=== PATIENT | female | born 1960 | race African-American/Black ===

== ENCOUNTER 2018-04-18 01:01 | Emergency (ER) | payer BC, OTHER ==
[~2018-04-18] VITALS: Ht 172.7 cm; Wt 63.5 kg
--- NOTE | 2018-04-18 01:29 | NUR ---
PT BBSELF FROM HOME C/C DIZZINESS SINCE TUESDAY, WORSE TODAY. PT DENIES N/V AT TIME OF ARRIVAL. PT IS AAOX4. PT DENIES NECK PAIN/STIFFNESS. NO S/S OF ACUTE DISTRESS NOTED. RESP EVEN AND UNLABORED. PT PLACED ON DESK TOP PUBLISHER AND POX. PT SAFETY AND COMFORT MEASURES IN PLACE. AWAITING MD FOR EVAL.
[2018-04-18] MEDS ORDERED: PROCHLORPERAZINE EDISYLATE 10 MG/2 ML VIAL ONE (01:30)
[2018-04-18] MEDS ORDERED: diphenhydrAMINE HCL 50 MG/ML VIAL ONE (01:30)
--- NOTE | 2018-04-18 01:34 | NUR ---
PT TO CT
[2018-04-18] MEDS: PROCHLORPERAZINE EDISYLATE 10 MG/2 ML VIAL IV ONE (01:50)
[2018-04-18] MEDS: diphenhydrAMINE HCL 50 MG/ML VIAL IV ONE (01:50)
[2018-04-18 02:05] LABS: BASOPHILS % (AUTO) 0.5 % (0.0-2.0); EOSINOPHILS % (AUTO) 1.2 % (0.0-6.0); HEMATOCRIT 37 % (33-45); LYMPHOCYTES # (AUTO) 2.3 /CMM (0.8-4.8); LYMPHOCYTES % (AUTO) 37.7 % (20.0-44.0); MEAN CORPUSCULAR HEMOGLOBIN 27 PG (26.0-33.0); MEAN CORPUSCULAR HGB CONC 33 g/dl (31.0-36.0); MEAN CORPUSCULAR VOLUME 82 fL (82-100); MONOCYTES # (AUTO) 0.3 /CMM (0.1-1.30); MONOCYTES % (AUTO) 5.7 % (2.0-12.0); NEUTROPHILS # (AUTO) 3.3 /CMM (1.8-8.9); NEUTROPHILS % (AUTO) 54.9 % (43.0-81.0); PLATELET COUNT (AUTO) 242 /CMM (150-450); RDW COEFFICIENT OF VARIATION 14.5 (11.5-15.0); RED BLOOD CELL COUNT(AUTO) 4.51 MIL/uL (4.0-5.2)
[2018-04-18 02:18] LABS: CALCIUM, SERUM 8.7 mg/dL (8.5-10.1); CARBON DIOXIDE 24 mmol/L (21-32); CHLORIDE 107 mmol/L (98-107); CREATININE 0.7 mg/dL (0.6-1.3); INR 1.12 (0.87-1.13); POTASSIUM 3.6 mmol/L (3.5-5.1); SODIUM SERUM 140 mmol/L (136-145); UREA NITROGEN, BLOOD 14 mg/dL (7-18)
[2018-04-18 02:24] LABS: ALANINE AMINOTRANSFERASE 31 U/L (12-78); ALBUMIN 3.9 g/dL (3.4-5.0); ALKALINE PHOSPHATASE 63 U/L (46-116); ASPARTATE AMINOTRANSFERASE 22 U/L (15-37); BILIRUBIN,DIRECT 0.1 mg/dL (0.0-0.2); BILIRUBIN,TOTAL 0.4 mg/dL (0.2-1.0); TOTAL PROTEIN, SERUM 7.7 g/dL (6.4-8.2)
[2018-04-18 02:26] LABS: CHOLESTEROL 221 mg/dL (<200); GLUCOSE 113 mg/dL (74-106); HDL CHOLESTEROL 50 mg/dL (40-60); LDL 153 mg/dL (0-99); TRIGLYCERIDES 86 mg/dL (30-150)
[2018-04-18 02:51] LABS: TROPONIN I < 0.017 ng/mL (0.00-0.056)
--- NOTE | 2018-04-18 03:59 | NUR ---
Patient discharged to home in stable condition. Written and verbal after care instructions given. Patient verbalizes understanding of instruction.IV removed. Catheter intact and site benign. Pressure and 4x4 applied to site. No bleeding noted. NO S/S OF DISTRESS NOTED UPON DISCHARGE. PT AMBULATED WITH STEADY GAIT NOTED.
[2018-04-18 04:04] VITALS: BP 159/98
== END 2018-04-18 04:05 | disposition home or self-care (01) ==
LOC: ER 01:02
DX: R42 Dizziness and giddiness (principal); R11.2 Nausea with vomiting, unspecified; R51 Headache; I10 Essential (primary) hypertension; Z86.69 Personal history of other diseases of the nervous system and sense organs
CPT/HCPCS: 36415; 70450-TC; 80048-TC; 80061-TC; 80076-TC; 84484-TC; 85025-TC; 85730-TC; A4606; J0780; J1200; Z7610